=== PATIENT | female | born 1990 | race Caucasian/White ===

== ENCOUNTER 2021-02-15 06:54 | Observation (INO) ==
[~2021-02-15 06:54] MED LIST: Polymyxin B Sulfate 500,000 UNIT, Sodium Chloride IRRigation 1,000 ML IR ONE
[2021-02-15] MEDS ORDERED: Ondansetron 4 MG/2 ML VIAL IVP PRN ×3 (07:10→23:57)
[2021-02-15] MEDS ORDERED: *HR* OxyCODONE Immed Rel 5 MG TABLET PO PRN ×2 (07:10→13:02)
[2021-02-15] MEDS ORDERED: Lidocaine -MPF 2% 5 ML VIAL ONE (07:13)
[2021-02-15] MEDS ORDERED: *HR* Midazolam HCl 2 MG/2 ML VIAL ONE (07:13)
[2021-02-15] MEDS ORDERED: *HR* FentaNYL (PF) 100 MCG/2 ML VIAL ONE ×2 (07:13→11:27)
[2021-02-15] MEDS ORDERED: Ondansetron 4 MG/2 ML VIAL ONE (07:13)
[2021-02-15] MEDS ORDERED: *HR* Propofol 200 MG/20 ML VIAL IVP ONE ×2 (07:13→10:48)
[2021-02-15] MEDS ORDERED: Ringers Solution, Lactated 1,000 ML IVC SCH ×3 (07:15→13:02)
[2021-02-15] MEDS ORDERED: CeFAZolin Syr 2,000MG/20 ML 2,000 MG/20 ML SYRINGE IVPB ONE (07:17)
[2021-02-15] MEDS ORDERED: *HR* Remifentanil 2 MG VIAL IVP ONE (07:19)
[2021-02-15] MEDS ORDERED: *HR* Phenylephrine 10 MG/ML VIAL ONE (07:19)
[2021-02-15] MEDS ORDERED: *HR* Rocuronium Bromide 50 MG/5 ML VIAL ONE (08:20)
[2021-02-15] MEDS ORDERED: *HR* Succinylcholine 200 MG/10 ML VIAL IVP ONE (08:22)
[2021-02-15] MEDS ORDERED: Sugammadex Sodium 200 MG/2 ML VIAL IV ONE (09:32)
[2021-02-15] MEDS ORDERED: Vancomycin 1,000 MG VIAL ONE (11:15)
[2021-02-15] MEDS: *HR* HYDROmorphone PF 0.5 MG/0.5 ML SYRINGE IVP PRN ×4 (12:18→12:50)
[2021-02-15] MEDS ORDERED: *HR* HYDROcodone/Acet 5/325 mg TABLET PO PRN (13:02)
[2021-02-15] MEDS ORDERED: ETONOGESTREL 68 MG SQ SCH (13:02)
[2021-02-15] MEDS ORDERED: Naloxone 0.4 MG/ML INJ IVP PRN (13:02)
[2021-02-15] MEDS ORDERED: Acetaminophen 325 MG TABLET PO PRN (13:02)
[2021-02-15] MEDS: CeFAZolin 2 GM/120 ML BAG IVPB SCH ×2 (16:44→23:00)
[2021-02-16] MEDS: *HR* HYDROcodone/Acet 5/325 mg TABLET PO PRN ×5 (01:42→22:25)
[2021-02-16 18:46] VITALS: O2SAT 98
[2021-02-17] MEDS: *HR* HYDROcodone/Acet 5/325 mg TABLET PO PRN ×2 (03:31→09:24)
[2021-02-17 07:02] VITALS: BP 115/73; PULSE 65; TEMP 98.3
== END 2021-02-17 12:25 | disposition home or self-care (01) ==
LOC: SDCAOSI 06:54 → 4WAOSI 06:54
PROVIDERS: ADMIT Orthopaedic Surgery Orthopaedic Surgery of the Spine; ATTEND Orthopaedic Surgery Orthopaedic Surgery of the Spine